=== PATIENT | female | born 1945 | race Caucasian/White ===

== ENCOUNTER 2017-08-08 17:45 | Emergency (ER) | payer OTHER, MEDICAID ==
[~2017-08-08] VITALS: Ht 149.9 cm; Wt 81.6 kg
[2017-08-08 18:20] VITALS: BP 142/59
[2017-08-08] MEDS ORDERED: METFORMIN HCL 500 MG TABLET (18:24)
[2017-08-08] MEDS ORDERED: AZITHROMYCIN 250 MG TABLET (18:24)
[2017-08-08] MEDS ORDERED: TRIAMCINOLONE 0.1% CREAM (18:24)
--- NOTE | 2017-08-08 18:37 | NUR ---
72/F BIB FAMILY FOR FLU-LIKE SYMPTOMS X 1WK. AAOx4, PERRLA, BREATHING EVEN AND UNLABORED. ERMD NOTIFIED OF PATIENT STATUS.
--- NOTE | 2017-08-08 18:38 | NUR ---
Patient being evaluated by physician at bedside.
[2017-08-08 19:14] LABS: BILIRUBIN,URINE NEGATIVE (NEGATIVE); BLOOD, URINE NEGATIVE (NEGATIVE); COLOR,URINE YELLOW (YELLOW); LEUKOCYTE ESTERASE ,URINE 1+ (NEGATIVE); NITRITE, URINE NEGATIVE (NEGATIVE); PH,URINE 5.5 (5.0-9.0); UGLUCOSE NEGATIVE (NEGATIVE)
[2017-08-08] MEDS ORDERED: guaiFENesin/CODEINE 100/10MG 5 ML UDC PO ONE (19:15)
[2017-08-08 19:24] LABS: APPEARANCE,URINE HAZY (CLEAR)
[2017-08-08 19:36] LABS: RBC,URINE NONE SEEN /HPF (0-5); WBC,URINE 0-5 (RARE) /HPF (0-5)
[2017-08-08 20:28] VITALS: BP 136/55
--- NOTE | 2017-08-08 20:28 | NUR ---
Patient discharged with v/s stable. Written and verbal after care instructions given and explained. Patient alert, oriented and verbalized understanding of instructions. Ambulatory with steady gait. All questions addressed prior to discharge. ID band removed. Patient advised to follow up with PMD. Rx of LEVAQUIN, TESSALON PERRLES, CODEINE PHOSPHATE given. Patient educated on indication of medication including possible reaction and side effects. Opportunity to ask questions provided and answered.
== END 2017-08-08 20:28 | disposition home or self-care (01) ==
LOC: MED 17:45
DX: J18.9 Pneumonia, unspecified organism (principal); E11.9 Type 2 diabetes mellitus without complications; E78.5 Hyperlipidemia, unspecified; I10 Essential (primary) hypertension
CPT/HCPCS: 36415; 71046; 81001; 81025; 87086; 87804; 99285

== ENCOUNTER 2022-01-26 08:49 | Emergency (ER) | payer OTHER ==
[~2022-01-26] VITALS: Ht 147.3 cm; Wt 81.2 kg
[~2022-01-26 08:49] MED LIST: AZITHROMYCIN 250 MG TABLET; METFORMIN HCL 500 MG TABLET; TRIAMCINOLONE 0.1% CREAM
[2022-01-26 08:53] VITALS: BP 176/77
--- NOTE | 2022-01-26 09:08 | NUR ---
PATIENT IN ROOM 6. HOB ELEVATED. SIDE RAILS UP X2
--- NOTE | 2022-01-26 09:14 | NUR ---
77 YR OLD FEMALE BIB SELF C/O COLD SX SINCE FRIDAY. PT HAS A NON PRODUCTIVE COUGH. LUNGS ARE CLEAR . RESP EVEN AND UNLABORED. PT IS A&OX4 DENIES SOB OR CP . PT STATED HAVING A SHOULDER PAIN WHEN COUGHING. PAIN LEVEL 5/10. 02SAT 97% RA. NO RECTRACTIONS NOTED. SIDE RAILS UP X2 HOB ELEVATED BED AT LOWEST POSITION NKDA HTN DM
--- NOTE | 2022-01-26 11:32 | NUR ---
COVID SWAB COLLECTED AND SENT TO LAB
[2022-01-26] MEDS ORDERED: SUD30 PO ×2 (12:22→16:26)
[2022-01-26] MEDS ORDERED: CHLO-1090 PO ×2 (12:22→16:26)
--- NOTE | 2022-01-26 12:25 | NUR ---
COVID NEG PENDING DC
[2022-01-26 12:50] VITALS: BP 176/77
--- NOTE | 2022-01-26 12:50 | NUR ---
Patient discharged with v/s stable. Written and verbal after care instructions given and explained. Patient verbalized understanding. Ambulatory with steady gait. All questions addressed prior to discharge. Advised to follow up with PMD.
--- NOTE | 2022-01-26 12:53 | NUR ---
Chart checked and completed.
== END 2022-01-26 12:50 | disposition home or self-care (01) ==
LOC: MED 08:49
DX: J06.9 Acute upper respiratory infection, unspecified (principal); Z20.822 Contact with and (suspected) exposure to COVID-19; I10 Essential (primary) hypertension; E11.9 Type 2 diabetes mellitus without complications; Z79.899 Other long term (current) drug therapy
CPT/HCPCS: 71045; 93005; 99285